=== PATIENT | male | born 1990 | race African-American/Black ===

== ENCOUNTER 2016-05-29 01:55 | Emergency (ER) | payer SELFPAY ==
[~2016-05-29] VITALS: Ht 180.3 cm; Wt 86.2 kg
[2016-05-29] MEDS ORDERED: NKM (02:08)
[2016-05-29] MEDS ORDERED: CLINDAMYCIN HC300 MG ORAL (02:48)
--- NOTE | 2016-05-29 02:48 | Emergency Room Report ---
History of Present Illness General Chief Complaint: Wound Recheck/Suture Removal Source: Patient Present Illness HPI Is a 26-year-old male who is right-hand dominant. He presents with a bite wound to his right hand. This occur yesterday. He woke up today was very swollen and painful. He went to [place] where he had blood work done, x-rays and IV antibiotics. He was told the x-ray looks fine. His swelling was improving. He was involved in a verbal argument with the security solutions engineer there and he left. He came here to be rechecked. Denies any other complaint. Again the hand is better and less swelling. Allergies: Coded Allergies: No Known Allergies (Unverified , 05/29/16) Patient History Past Medical History: see triage record, old chart reviewed Past Surgical History: none Pertinent Family History: none Social History: Reports: drug use, smoking Immunizations: other Reviewed Nursing Documentation: PMH: Agreed, PSxH: Agreed Nursing Documentation-PM Past Medical History: No Stated History Review of Systems Eye: Denies: blurred vision, eye pain ENT: Denies: ear pain, nose congestion, throat swelling Respiratory: Denies: cough, shortness of breath Cardiovascular: Denies: chest pain, palpitations Gastrointestinal: Denies: abdominal pain, diarrhea, nausea, vomiting Musculoskeletal: Denies: back pain, joint pain Skin: Denies: rash Neurological: Denies: headache, numbness Endocrine: Denies: increased thirst, increased urine Hematologic/Lymphatic: Denies: easy bruising All Other Systems: negative except mentioned in HPI Physical Exam Vital Signs Date Time Temp Pulse Resp B/P Pulse Ox O2 Delivery O2 Flow Rate FiO2 05/29/16 01:59 98.1 87 16 111/67 97 Room Air vitals normal Sp02 EP Interpretation: reviewed, normal General Appearance: well appearing, no apparent distress, alert Head: normocephalic, atraumatic Eyes: bilateral eye EOMI, bilateral eye PERRL ENT: hearing grossly normal, normal pharynx Neck: full range of motion, supple, no meningismus Respiratory: chest non-tender, lungs clear, normal breath sounds Cardiovascular #1: regular rate, rhythm, no murmur Gastrointestinal: normal bowel sounds, non tender, no mass, no organomegaly, no bruit, non-distended Musculoskeletal: back normal, gait/station normal, normal range of motion, other - Right hand: There is a 1 cm laceration/bite wound to the hyperthenar eminence. There is generalized edema and mild redness. When I squeeze the wound there is small amount of purulent discharge. Neurologic: alert, oriented x3 Psychiatric: mood/affect normal Skin: warm/dry Procedures Incision and Drainage Incision and Drainage : Consent: Verbal Site: Right-hand Blade Size: 11 I & D Procedure: betadine prep, sterile drapes applied, sterile dressing applied, gauze wick placed Irrigated w/ Saline (ccs): 1000 Anesthesia: 1% Lidocaine Volume Anesthetic (ccs): 3 Patient Tolerated: Well Complications: None Progress Wound clean with Betadine. I sent a wound culture. Local anesthetic with 1% lidocaine. I extended the incision. I remove necrotic tissue. Irrigated. There is only minimal amount of purulent discharge. No foreign body. Medical Decision Making Diagnostic Impression: Primary Impression: Abscess of right hand excluding fingers and thumb ER Course Patient with an abscess from a bite wound. He said his improving. We'll put him on antibiotics. He doesn't want to stay. he is going back to [place]. Labs were done at [place]. I sent a culture. Last Vital Signs Date Time Temp Pulse Resp B/P Pulse Ox O2 Delivery O2 Flow Rate FiO2 05/29/16 01:59 98.1 87 16 111/67 97 Room Air Status: improved Disposition: HOME, SELF-CARE Condition: Stable Scripts Clindamycin Hcl (CLINDAMYCIN HCL) 300 Mg Capsule 300 MG ORAL THREE TIMES A DAY, #21 CAP Prov: GREYSON LEZAMA M.D. 05/29/16 Referrals: NOT CHOSEN IPA/,REFERRING (PCP) Additional Instructions: Keep wound clean. Wound check in one to 2 days. Followup your DrMychal in [place] for it. Return if worse. GREYSON LEZAMA M.D. May 29, 2016 02:48
[2016-05-29 03:11] VITALS: BP 136/78
[2016-05-29 03:12] VITALS: BP 111/67
== END 2016-05-29 03:13 | disposition home or self-care (01) ==
LOC: EMR 02:20
DX: L02.511 Cutaneous abscess of right hand (principal); F17.200 Nicotine dependence, unspecified, uncomplicated
CPT/HCPCS: 10060; 87070; 87181; 87205